=== PATIENT | female | born 1970 | race Hispanic/Latino ===

== ENCOUNTER 2017-07-30 10:29 | Outpatient (CLI) | payer BC, OTHER | END 2017-07-30 10:30 | disposition home or self-care (01) | LOC: BICULT 10:29 | PROVIDERS: ATTEND Family Medicine | DX: R10.12 Left upper quadrant pain (principal); R31.9 Hematuria, unspecified; Z90.49 Acquired absence of other specified parts of digestive tract | CPT/HCPCS: 76700 ==

== ENCOUNTER 2017-08-04 16:59 | Emergency (ER) | payer BC, OTHER ==
[~2017-08-04 16:59] MED LIST: ISOVUE-370 76%-LOCM 1 ML ONE
[2017-08-04 18:49] LABS: Bilirubin Negative (Negative); Blood, Urine Negative (Negative); Clarity CLEAR (Clear); Glucose, Urine (Dipstick) Negative (Negative); Leukocyte Negative (Negative); Nitrite Negative (Negative); Protein, Urine (Dipstick) Negative (Neg-Trace); Specific Gravity, Urine 1.003 (1.002-1.036); Urobilinogen 0.2 mg/dL (0.2-1.0)
[2017-08-04 19:02] LABS: #Basophils 0.1 thou/uL (0.0-0.2); #Eosinphils 0.2 thou/uL (0.0-0.7); #Lymphocytes 2.5 thou/uL (1.20-3.40); #Monocytes 0.5 thou/uL (0.11-0.59); #Neutrophils 2.9 thou/uL (1.40-6.50); %Basophils 1.1 % (0.0-1.0); %Eosinophils 3.4 % (0.0-10.0); %Lymphocytes 40.7 % (21.0-51.0); %Monocytes 8.3 % (0.0-10.0); %Neutrophils 46.5 % (42.0-75.0); Hemoglobin 13.4 g/dL (12.0-16.0); Mean Corpuscular HGB CONC 33.5 g/dL (32.0-36.0); Mean Corpuscular Hemoglobin 31.6 pg (27.0-31.0); Mean Corpuscular Volume 94.4 fl (81.0-99.0); Mean Platelet Volume 7.1 fL (7.4-10.4); Platelet Count 288 thou/uL (130-400); RBC Distribution Width 11.1 % (11.5-14.5); Red Blood Cell (RBC) Count 4.23 mill/uL (4.20-5.40); White Blood Cell (WBC) Count 6.2 thou/uL (4.8-10.8)
[2017-08-04] MEDS ORDERED: Ondansetron HCl/PF 4 MG/2 ML Vial ONE (19:13)
[2017-08-04 19:21] LABS: ALT (SGPT) 58 U/L (8-55); AST (SGOT) 36 U/L (5-34); Albumin 4.5 g/dL (3.5-5.0); Alkaline Phosphatase 68 U/L (40-150); Anion Gap 11 mmol/L (10-20); BUN (Urea Nitrogen) 12 mg/dL (7.0-18.7); Bilirubin, Total 0.3 mg/dL (0.2-1.2); Calc. Creatinine Clearance 0 mL/min (70-130); Calcium 9.8 mg/dL (7.8-10.44); Carbon Dioxide 28 mmol/L (22-29); Chloride 103 mmol/L (98-107); Estimated GFR-MDRD Greater than 90; Globulin 3.5 g/dL (2.4-3.5); Glucose 100 mg/dL (70-105); Lipase 28 U/L (8-78); Potassium 4.2 mmol/L (3.5-5.1); Sodium 138 mmol/L (136-145)
--- NOTE | 2017-08-04 21:33 | CT ---
CT ABDOMEN AND PELVIS WITH IV CONTRAST: Date: 08-04-17 History: Left lower abdominal pain since April. Pain radiates to low back. Comparison: 03-24-12 FINDINGS: Lung bases are clear. Post cholecystectomy changes are again seen. Subcentimeter too small to charact erize hypodense lesion is again seen in the superior pole right kidney. A subcentimeter too small to characterize hyperdense lesion is seen in the medial aspect of the posterior segment right hepatic lo be. The spleen, pancreas, bilateral adrenal glands, left kidney and urinary bladder demonstrate a normal CT appearance. There is evidence of prior hysterectomy. The appendix is visualized and filled with gas and normal in caliber. Minimal vascular calcifications are seen in the abdominal aorta. Small fat containing bilateral inguinal hernias are again identified. The cystic structure in the right adnexal region noted on prior exam is no longer seen. IMPRESSION: 1. No acute findings are seen in the abdomen or pelvis. 2. Post-surgical changes related to cholecystectomy and hysterectomy. 3. Subcentimeter too small to characterize hypodense lesions in the superior pole right kidney and po sterior segment right hepatic lobe. POS: [facility]
== END 2017-08-04 20:57 | disposition home or self-care (01) ==
LOC: ERS 16:59
DX: R10.32 Left lower quadrant pain (principal)
CPT/HCPCS: 36415; 74177; 80053; 81003; 83690; 85025; 87086; 96361; 96374; 96375; J2270; J2405

== ENCOUNTER 2018-01-26 05:02 | Emergency (ER) | payer BC, OTHER | END 2018-01-26 06:04 | disposition home or self-care (01) | LOC: ERS 05:02 | DX: S46.911A Strain of unspecified muscle, fascia and tendon at shoulder and upper arm level, right arm, initial encounter (principal); S16.1XXA Strain of muscle, fascia and tendon at neck level, initial encounter; X50.0XXA Overexertion from strenuous movement or load, initial encounter; Y99.0 Civilian activity done for income or pay | CPT/HCPCS: 99283 ==

== ENCOUNTER 2018-07-30 13:32 | Outpatient (CLI) | payer BC ==
--- NOTE | 2018-07-30 15:23 | BD ---
BONE DENSITOMETRY USING DEXA: HISTORY: Postmenopausal screening for osteoporosis. FINDINGS: Lumbar Spine: BMD (g/cm2) L1 1.010 T-Score: 0.2 Z-Score: 0.7 L2 1.037 T-Score: 0.1 Z-Score: 0.6 L3 0.951 T-Score: -1.2 Z-Score: 0.6 L4 1.057 T-Score: 0.0 Z-Score: 0.6 L1-L4 0.016 T-Score: -0.3 Z-Score: 0.3 Femoral Neck: 0.942 T-Score: 0.8 Z-Score: 1.0 Total Femur: 1.168 T-Score: 1.9 Z-Score: 1.7 Impression: Normal bone mineral density. No evidence of osteopenia/osteoporosis. POS: [facility]
== END 2018-07-30 13:33 | disposition home or self-care (01) ==
LOC: BICMAMMO 13:32
DX: Z12.31 Encounter for screening mammogram for malignant neoplasm of breast (principal); Z13.820 Encounter for screening for osteoporosis; N64.89 Other specified disorders of breast; Z78.0 Asymptomatic menopausal state
CPT/HCPCS: 77063; 77067; 77080

== ENCOUNTER 2018-08-05 10:05 | Outpatient (CLI) | payer BC ==
--- NOTE | 2018-08-05 11:24 | ULT ---
LEFT BREAST ULTRASOUND: HISTORY: Focal asymmetry seen on mammography, in the upper, outer aspect of the left breast. COMPARISON: Mammograms from 08/05/2018, 07/30/2018, 05/06/2017, and 12/15/2014. TECHNIQUE: Multiplanar govea-scale and color Doppler images were obtained in a targeted ultrasound of the upper, outer aspect of the left breast. FINDINGS: No suspicious shadowing or mass is seen in the upper outer aspect of the left breast. At the 12 o'cl ock position, approximately 2 cm from the nipple, there is a well circumscribed lesion, measuring 9 m m in size, with a hyperechoic center. This may represent an intramammary lymph node. This likely do es not correspond to the mammographic abnormality. No obvious correlate is seen with ultrasound for the mammographic finding. IMPRESSION: BI-RADS category 3-Probably benign. A six-month follow-up mammogram only is recommended to ensure st ability. An ultrasound does not need to be performed, as the lesion has no ultrasound correlate. POS: [facility]
== END 2018-08-05 10:06 | disposition home or self-care (01) ==
LOC: BICULT 10:05
DX: N64.89 Other specified disorders of breast (principal)
CPT/HCPCS: G0279

== ENCOUNTER 2019-11-24 15:16 | Outpatient (CLI) | payer BC ==
--- NOTE | 2019-11-24 16:18 | ULT ---
TRANSABDOMINAL AND TRANSVAGINAL PELVIC ULTRASOUND: 11/24/19 INDICATION: History of left lower quadrant abdominal pain. FINDINGS: Color Doppler and govea scale ultrasound images were obtained of the pelvis. The uterus and adnexa are surgically absent. No free fluid or enlarged lymph nodes are evident. The v isualized bladder is within normal limits. IMPRESSION: 1. Hysterectomy. 2. No intrapelvic mass or free fluid identified. POS: [facility]
== END 2019-11-24 15:17 | disposition home or self-care (01) ==
LOC: BICULT 15:16
PROVIDERS: ATTEND Student in an Organized Health Care Education/Training Program
DX: R10.32 Left lower quadrant pain (principal); Z90.710 Acquired absence of both cervix and uterus
CPT/HCPCS: 76856; 87635; U0003

== ENCOUNTER 2020-05-12 12:56 | Outpatient (CLI) | payer BC ==
--- NOTE | 2020-05-12 13:48 | MMO ---
Bilateral MAMMO Bilat Diag [id number]. CLINICAL HISTORY: Patient is 49 years old and is seen for diagnostic exam. The patient has no family history of breast cancer. The patient has no personal history of cancer. VIEWS: The views performed were: bilateral craniocaudal with tomosynthesis; bilateral mediolateral oblique with tomosynthesis; and bilateral mediolateral with tomosynthesis. FILMS COMPARED: The present examination has been compared to prior imaging studies performed at [facility] on 12/15/2014, 05/06/2017, 07/30/2018 and 08/05/2018. This study has been interpreted with the assistance of computer-aided detection. MAMMOGRAM FINDINGS: There are scattered fibroglandular densities. The left breast nodule noted on prior exam is not seen today. There are no suspicious masses, suspicious calcifications, or new areas of architectural distortion. IMPRESSION: THERE IS NO MAMMOGRAPHIC EVIDENCE OF MALIGNANCY. A ROUTINE FOLLOW-UP MAMMOGRAM IN 1 YEAR IS RECOMMENDED. THE RESULTS OF THIS EXAM WERE SENT TO THE PATIENT. ACR BI-RADS Category 1 - Negative MAMMOGRAPHY NOTE: 1. A negative mammogram report should not delay a biopsy if a dominant of clinically suspicious mass is present. 2. Approximately 10% to 15% of breast cancers are not detected by mammography. 3. Adenosis and dense breasts may obscure an underlying neoplasm. Reported by: RAJEEV YING MD Electonically Signed: [id number]
== END 2020-05-12 12:57 | disposition home or self-care (01) ==
LOC: BICMAMMO 12:56
PROVIDERS: ATTEND Student in an Organized Health Care Education/Training Program
DX: R92.8 Other abnormal and inconclusive findings on diagnostic imaging of breast (principal)
CPT/HCPCS: 77066; G0279

== ENCOUNTER 2021-04-07 01:41 | Emergency (ER) | payer OTHER, SELFPAY ==
[2021-04-07 02:53] LABS: HIV (1/2) Antibody/Antigen Non-Reactive (NonReactive); HIV 1/2 INDEX 0.15 S/CO (<1.00); Hep C IgG Ab Non-Reactive (NonReactive); Hep C Index 0.16 S/CO (0-0.79)
[2021-04-07 03:35] LABS: HBSAB Concentration 40.42 mIU/mL; Hep B Surf AB Reactive (NonReactive)
== END 2021-04-07 02:27 | disposition home or self-care (01) ==
LOC: ERS 01:41
DX: S61.230A Puncture wound without foreign body of right index finger without damage to nail, initial encounter (principal); W46.0XXA Contact with hypodermic needle, initial encounter
CPT/HCPCS: 36415; 86706; 86803; 87389; 99283

== ENCOUNTER 2021-05-23 20:39 | Emergency (ER) | payer SELFPAY ==
[~2021-05-23 20:39] MED LIST changes: -ISOVUE-370 76%-LOCM 1 ML ONE; +Iopamidol-370 76% 500 ML 1 ML ONE
[2021-05-23 21:59] LABS: #Basophils 0.1 thou/uL (0.0-0.2); #Eosinphils 0.2 thou/uL (0.0-0.7); #Lymphocytes 2.2 thou/uL (1.20-3.40); #Monocytes 0.5 thou/uL (0.11-0.59); #Neutrophils 2.6 thou/uL (1.40-6.50); %Eosinophils 3.6 % (0.0-10.0); %Lymphocytes 40.1 % (21.0-51.0); %Monocytes 8.9 % (0.0-10.0); %Neutrophils 46.4 % (42.0-75.0); Hemoglobin 12.2 g/dL (12.0-16.0); Mean Corpuscular Hemoglobin 30.5 pg (27.0-31.0); Mean Corpuscular Volume 92.5 fL (78.0-98.0); Mean Platelet Volume 7.5 fL (7.4-10.4); Platelet Count 259 thou/uL (130-400); RBC Distribution Width 11.6 % (11.5-14.5); Red Blood Cell (RBC) Count 3.99 mill/uL (4.20-5.40); White Blood Cell (WBC) Count 5.5 thou/uL (4.8-10.8)
[2021-05-23] MEDS ORDERED: Ondansetron PF 4 MG/2 ML Vial ONE (22:01)
[2021-05-23] MEDS ORDERED: Morphine 4 MG/ML VIAL ONE (22:01)
[2021-05-23 22:20] LABS: ALT (SGPT) 25 U/L (8-55); AST (SGOT) 18 U/L (5-34); Albumin 4.1 g/dL (3.5-5.0); Alkaline Phosphatase 74 U/L (40-110); Anion Gap 12 mmol/L (10-20); BUN (Urea Nitrogen) 15 mg/dL (7.0-18.7); Bilirubin, Total 0.4 mg/dL (0.2-1.2); Calc. Creatinine Clearance 0 mL/min (70-130); Calcium 9.2 mg/dL (7.8-10.44); Carbon Dioxide 27 mmol/L (22-29); Chloride 104 mmol/L (98-107); Globulin 2.9 g/dL (2.4-3.5); Glucose 107 mg/dL (70-105); Lipase 22 U/L (8-78); Potassium 3.6 mmol/L (3.5-5.1); Sodium 139 mmol/L (136-145)
[2021-05-23 22:35] LABS: Bilirubin Negative (Negative); Blood, Urine Negative (Negative); Clarity Clear (Clear); Glucose, Urine (Dipstick) Normal (Negative); Ketone, Urine Negative (Negative); Leukocyte Negative Leu/uL (Negative); Nitrite Negative (Negative); Protein, Urine (Dipstick) Negative (Neg-Trace); Urobilinogen Normal mg/dL (Less than 2); pH, Urine 5.5 (5.0-9.0)
== END 2021-05-23 23:36 | disposition home or self-care (01) ==
LOC: ERS 20:39
DX: R10.32 Left lower quadrant pain (principal); R11.0 Nausea; R00.1 Bradycardia, unspecified; I10 Essential (primary) hypertension
CPT/HCPCS: 36415; 71045; 74177; 80053; 81003; 83605; 83690; 84484; 85025; 93005; 96374; 96375; J2270; J2405; Q9967

== ENCOUNTER 2023-06-27 12:14 | Outpatient (CLI) | payer BC | END 2023-06-27 12:15 | disposition home or self-care (01) | LOC: BICMAMMO 12:14 | PROVIDERS: ATTEND Student in an Organized Health Care Education/Training Program | DX: Z12.31 Encounter for screening mammogram for malignant neoplasm of breast (principal) | CPT/HCPCS: 77063; 77067 ==